=== PATIENT | male | born 1955 | race Caucasian/White ===

== ENCOUNTER 2017-01-26 18:08 | Inpatient (IN) | payer OTHER ==
[~2017-01-26] VITALS: Ht 157.5 cm; Wt 54.4 kg
[~2017-01-26 18:08] MED LIST: AMIO200T PO; AMOX-842 PO; ASPI81CT89 PO; ATOR20TA PO; CAR30 PO; HYDR-3229 PO; METO25TA PO; SEVE800T PO; SITA25TA3 PO; WARF2.5T77 PO
[2017-01-26 18:29] VITALS: BP 134/63
--- NOTE | 2017-01-26 19:00 | NUR ---
Pt taken to bed 7
[2017-01-26 19:09] LABS: BASOPHILS # (AUTO) 0.1 K/uL (0.00-0.22); BASOPHILS % (AUTO) 0.6 % (0.0-2.0); EOSINOPHILS # (AUTO) 0.1 K/uL (0-0.4); EOSINOPHILS % (AUTO) 0.7 % (0.0-4.0); HEMATOCRIT 32.6 % (36-52); HEMOGLOBIN 10.4 g/dL (12.0-18.0); LYMPHOCYTES # (AUTO) 0.8 K/uL (2.0-11.5); LYMPHOCYTES % (AUTO) 8.5 % (20.5-51.1); MEAN CORPUSCULAR HEMOGLOBIN 30 pg (27-31); MEAN CORPUSCULAR HGB CONC 32 g/dL (33-37); MEAN CORPUSCULAR VOLUME 94 fL (80-94); MONOCYTES # (AUTO) 0.5 K/uL (0.8-1.0); MONOCYTES % (AUTO) 5.9 % (1.7-9.3); NEUTROPHILS # (AUTO) 7.5 K/uL (1.8-7.7); NEUTROPHILS % (AUTO) 84.3 % (42.2-75.2); PLATELET COUNT (AUTO) 122 K/uL (140-450); RED BLOOD CELL COUNT(AUTO) 3.47 MIL/uL (4.20-6.10); RED CELL DISTRIBUTION WIDTH 15.6 % (11.6-13.7)
[2017-01-26] MEDS ORDERED: KETOROLAC 30 MG/ML VIAL IM ONE (19:15)
[2017-01-26] MEDS ORDERED: NACL 0.9% 1,000 ML IV ONE (19:15)
[2017-01-26] MEDS ORDERED: HYDROcodone/APAP 5/325 MG 1 TAB TAB PO ONE (19:15)
--- NOTE | 2017-01-26 19:18 | NUR ---
62 y/o m w/c/o l lower abd and l chest pain x 2 days. o2 sat 90-91%, pt placed in o2 2lt. o2 sat after o23 placement 98%-100%. er notified.
[2017-01-26] MEDS ORDERED: KETOROLAC 30 MG/ML VIAL IVP ONE (19:20)
[2017-01-26 19:28] LABS: ALBUMIN 3.3 g/dL (3.4-5.0); ANION GAP 14.9 (8-16); CALCIUM 8.7 mg/dL (8.5-10.1); CARBON DIOXIDE 38.1 mmol/L (21-32); TOTAL BILIRUBIN 0.6 mg/dL (0.0-1.0); TOTAL PROTEIN, SERUM 7.9 g/dL (6.4-8.2)
[2017-01-26 19:34] LABS: INR 1.3 (0.8-1.2)
[2017-01-26 19:39] LABS: LACTIC ACID 1.3 mmol/L (0.4-2.0)
[2017-01-26 19:44] LABS: CREATININE 8.8 mg/dL (0.6-1.3)
[2017-01-26] MEDS ORDERED: ASPIRIN 325 MG TAB PO ONE (19:50)
--- NOTE | 2017-01-26 20:52 | NUR ---
Patient will be admitted to care of Dr Salcido. Admited to telemetry. Will go to room 107b. Belongings list completed. Report to LALITA Lucia.
--- NOTE | 2017-01-26 21:05 | NUR ---
PT TRASFERRED TO TELEMETRY FLOOR VIA [place]. ACCOMPANIED BY RN AND EMT, DENIED ANY PAIN AT THE TIME OF TRASFER.
[2017-01-26] MEDS ORDERED: NACL 0.9% 1,000 ML IV SCH (21:08)
[2017-01-26 21:10] VITALS: BP 122/65
[2017-01-26] MEDS ORDERED: ACETAMINOPHEN 325 MG TAB PO PRN (21:10)
[2017-01-26] MEDS ORDERED: HYDROcodone/APAP 5/325 MG 1 TAB TAB PO PRN (21:10)
[2017-01-26] MEDS ORDERED: MORPHINE SULFATE 2 MG/ML SYR IVP PRN (21:10)
[2017-01-26] MEDS ORDERED: ONDANSETRON 4 MG/2 ML VIAL IVP PRN (21:10)
--- NOTE | 2017-01-26 21:10 | NUR ---
Admitted from ER, with chief complaint of WEAKNESS, LOWER ABDOMINAL PAIN, CHEST PAIN. PT'S FAMILY AT BEDSIDE. 62 Y/O MALE, COOPERATIVE, PT AOX4, ABLE TO VERBALIZE NEEDS. PT DENIES CHEST PAIN OR ABDOMINAL PAIN. NO SOB OR S/S OF ACUTE DISTRESS. PT ON O2 2L NC. BUSINESS PROFESSOR IN PLACE. SCAR FROM PAST BYPASS SURGERY NOTED. LEFT AV SHUNT NOTED, WILL OBSERVE LEFT LIMB RESTRICTION PRECAUTIONS. IV ACCESS ASYMPTOMATIC, PATENT AND INTACT. IVF INFUSING WELL. DISCUSSED AND REVIEWED PLAN OF CARE WITH PT. PT VERBALIZES UNDERSTANDING Oriented to call light, bed, phone,television, bathroom, smoking policy, visiting hours, procedures, ID bracelet on. Belongings list checked. SAFETY MEASURES ENSURED. CALL LIGHT WITHIN REACH. WILL CONTINUE TO MONITOR.
[2017-01-26] MEDS ORDERED: hePARIN / DEXT 5% PREMIX 250 ML IV SCH ×2 (21:15→23:30)
[2017-01-26] MEDS ORDERED: HEPARIN PER PHARMACY MC PRN (21:15)
[2017-01-26] MEDS: METOPROLOL 25 MG TAB PO SCH (21:20)
[2017-01-26] MEDS: ATORVASTATIN 20 MG TAB PO SCH (21:20)
[2017-01-26] MEDS: LISINOPRIL 5 MG TAB PO SCH (21:20)
--- NOTE | 2017-01-26 21:50 | NUR ---
PAGED DR TAIPA, MADE AWARE THAT THERE IS AN ORDER FOR HEPARIN DRIP BUT NO ORDER FOR PTT LAB DRAW. STATED THAT PTT LAB DRAW SHOULD ALREADY COME WITH THE HEPARIN DRIP ORDER PROTOCOL.
--- NOTE | 2017-01-26 21:55 | NUR ---
CHARGE NURSE MADE AWARE OF HEPARIN DRIP ORDER WITH NO ORDER FOR PTT LAB DRAW. DR TAPIA PAGED AGAIN TO GET ORDER FOR PTT LAB DRAW.
--- NOTE | 2017-01-26 22:35 | NUR ---
NO CALL BACK FROM DR TAPIA. CHARGE NURSE AWARE. PTT LAB DRAW ORDERED AT THIS TIME. CIAIO LUMITE INJECTOR LAURA MADE AWARE.
--- NOTE | 2017-01-26 22:46 | NUR ---
DUE MEDICATIONS LISINOPRIL, METOPROLOL AND LIPITOR HELD DUE TO MEDICATIONS NOT AVAILABLE FROM THE [facility] PER NURSE MIDWIFE. BP 122/65, HR 67, CONDITION STABLE. ALL NEEDS MET. SAFETY MEASURES ENSURED.
[2017-01-27] VITALS: BP 139/65
--- NOTE | 2017-01-27 00:37 | NUR ---
HEPARIN DRIP STARTED WITH EDUCATION AND 2 RN VERIFICATION PER PROTOCOL AND ORDERED, PT VERBALIZES UNDERSTANDING. PT TOLERATED WELL. HEPARIN DRIP INFUSING WELL. CONDITION STABLE. ALL NEEDS MET. SAFETY MEASURES ENSURED. CALL LIGHT WITHIN REACH. WILL CONTINUE TO MONITOR.
--- NOTE | 2017-01-27 01:00 | NUR ---
DR TAPIA MADE AWARE OF HEPARIN DRIP INFUSING WELL, STATED THAT IT IS OKAY FOR NURSES TO ORDER SUBSEQUENT PTT LAB DRAWS PER PROTOCOL. MADE AWARE OF PT DUE FOR DIALYSIS TOMORROW, PT IS ON DIALYSIS FOR SUN, AND SUNDAY. STATED "THIS PT IS A NEW ADMIT, THE ORDERS AND CONSULT WILL BE MADE IN THE MORNING."
[2017-01-27 04:00] VITALS: BP 116/56
--- NOTE | 2017-01-27 04:00 | NUR ---
CONDITION STABLE. ALL NEEDS MET. HEPARIN DRIP INFUSING WELL. SAFETY MEASURES ENSURED. CALL LIGHT WITHIN REACH. WILL CONTINUE TO MONITOR.
[2017-01-27] MEDS ORDERED: PNEUMOCOCCAL VACCINE 23 MCG/0.5 ML VIAL IMVAC SCH (04:20)
[2017-01-27] MEDS: DILTIAZEM 30 MG TAB PO SCH ×3 (04:50→21:13)
--- NOTE | 2017-01-27 05:14 | NUR ---
NEW IV ACCESS INSERTED ON LEFT WRIST, ASYMPTOMATIC, PATENT AND INTACT. PT TOLERATED WELL. IVF INFUSING WELL. HEPARIN DRIP ON IV LEFT FOREARM INFUSING WELL. ALL NEEDS MET. SAFETY MEASURES ENSURED. CALL LIGHT WITHIN REACH. WILL CONTINUE TO MONITOR.
--- NOTE | 2017-01-27 06:43 | NUR ---
PATIENT HAS BEEN SCREENED AND CATEGORIZED HIGH NUTRITION RISK. PATIENT WILL BE SEEN WITHIN 1-2 DAYS OF ADMISSION. 01/26/17-01/27/17 DRU BUTLER MS, RDN
--- NOTE | 2017-01-27 07:33 | NUR ---
ENDORSED PLAN OF CARE TO DAYSHIFT NURSE. CONDITION STABLE.
--- NOTE | 2017-01-27 07:34 | NUR ---
PT ALERT AND ORIENTED X4. BREATHING EVENLY AND UNLABORED. NO SIGNS OF ACUTE DISTRESS. SKIN IS WARM AND DRY. NO SIGNS OF ANY BOWEL/BLADDER DISCOMFORT. DENIES OF ANY PAIN OR DISCOMFORT. ALL NEEDS ATTENDED, SAFETY PRECAUTIONS MAINTAINED. CALL LIGHT WITHIN REACH.
--- NOTE | 2017-01-27 07:40 | NUR ---
OBTAINED PTT RESULTS. OBSERVED HEPARIN PROTOCOL ORDERED. CONTINUE TO MONITOR.
[2017-01-27 08:00] VITALS: BP 150/78
[2017-01-27] MEDS: METOPROLOL 25 MG TAB PO SCH ×2 (08:29→21:12)
[2017-01-27] MEDS: LISINOPRIL 5 MG TAB PO SCH (08:29)
[2017-01-27] MEDS: hydrALAZINE 10 MG TAB PO SCH ×2 (08:30→21:12)
--- NOTE | 2017-01-27 09:19 | NUR ---
01/27/17 RD INITIAL ASSESSMENT COMPLETED PLEASE REFER TO NUTRITION ASSESSMENT UNDER CARE ACTIVITY FOR ESTIMATED NUTRITIONAL NEEDS. RD RECOMMENDATIONS: 1. CONTINUE NPO APPROPRIATE. 2. CONSIDER INITIATING NUTRITION WHEN APPROPRIATE; CONSULT RDN PRN. 3. RD WILL F/U 2-3 DAYS; HIGH RISK. DRU BUTLER MS, RDN
[2017-01-27] MEDS: SEVELAMER CARBONATE 800 MG TAB PO SCH ×3 (10:19→17:00)
[2017-01-27] MEDS: ASPIRIN 81 MG TAB.CHEW PO SCH (10:19)
[2017-01-27] MEDS: AMIODARONE 200 MG TAB PO SCH (10:19)
--- NOTE | 2017-01-27 11:38 | NUR ---
RECEIVED NEW ORDER FROM Darnell MARTIN/[facility] HEPARIN NOTED AND CARRIED OUT.
[2017-01-27 12:00] VITALS: BP 140/68
--- NOTE | 2017-01-27 13:25 | NUR ---
WAS SEEN BY DR. HENDERSON, NEW ORDERS RECEIVED. HD TODAY. [facility] DIALYSIS AWARE.
[2017-01-27 14:25] LABS: INR 1.3 (0.8-1.2); PARTIAL THROMBOPLASTIN TIME 34.5 secs (22-35.6); PROTHROMBIN TIME 12.7 secs (10.8-13.4)
[2017-01-27 16:00] VITALS: BP 108/57
--- NOTE | 2017-01-27 17:23 | NUR ---
PT STARTED ON HD BY SHANNA CELIS FROM [facility]. PT TOLERATING WELL. CONTINUE TO MONITOR.
[2017-01-27] MEDS ORDERED: DEXTROSE 50% 50 ML SYR IVP PRN (17:40)
--- NOTE | 2017-01-27 18:41 | NUR ---
PT ALERT AND RESPONSIVE, NO SIGNS OF ACUTE DISTRESS. STILL UNDERGOING HD AND TOLERATING WELL. WILL ENDORSE TO ONCOMING HYDROGENATION OPERATOR NURSE FOR CONTINUITY OF CARE.
--- NOTE | 2017-01-27 19:30 | NUR ---
RECEIVED FROM AM RN IN BED AWAKE AND ALERT. HEMODIALYSIS ON GOING. NO COMPLAINTS OF ANY PAIN AT THIS TIME. CALL LIGHT WITH IN REACH. CARE PLANS FOR THE NIGHT DISCUSSED WITH HIM.
[2017-01-27 21:00] VITALS: BP 145/77
[2017-01-27] MEDS ORDERED: NACL 0.9% 1,000 ML IV SCH (21:08)
[2017-01-27] MEDS: ATORVASTATIN 20 MG TAB PO SCH (21:13)
[2017-01-27] MEDS: BLOOD GLUCOSE MONITORING 1 DEV DEV FS SCH (21:19)
[2017-01-27] MEDS: INSULIN LISPRO SLIDING SCALE 100 UNITS/ML VIAL SUBQ PRN (21:20)
--- NOTE | 2017-01-27 21:29 | NUR ---
HEMODIALYSIS DONE WITH OUTPUT OF 2100 ML. AWAKE AND ALERT. MEDICATED WITH ZOFRAN RT COMPLAINED OF NAUSEA. CALL LIGHT WITH IN REACH.
[2017-01-28 00:49] VITALS: BP 100/54
--- NOTE | 2017-01-28 00:55 | NUR ---
SLEEPING AT THIS TIME. WAKES UP EASILY WHEN TOUCHED. DENIES ANY PAIN. TELEMETRY MONITORING. HD SITE TO LEFT UPPER ARM INTACT DRESSING AND NO BLEEDING. CALL LIGHT WITH IN REACH.
[2017-01-28 04:36] VITALS: BP 105/58
--- NOTE | 2017-01-28 04:38 | NUR ---
PT. AWAKE AT THIS TIME. VITAL SIGNS TAKEN. NO COMPLAINTS DONE. ABLE TO VERBALIZE SIMPLE NEEDS. CALL LIGHT WITH IN REACH. ENCOURAGED TO GO BACK TO SLEEP RT IT IS STILL EARLY. "OK" DENIES ANY PAIN AT THIS TIME.
[2017-01-28] MEDS: BLOOD GLUCOSE MONITORING 1 DEV DEV FS SCH ×2 (05:53→11:51)
[2017-01-28] MEDS: DILTIAZEM 30 MG TAB PO SCH ×2 (05:55→12:00)
[2017-01-28] MEDS: INSULIN LISPRO SLIDING SCALE 100 UNITS/ML VIAL SUBQ PRN ×2 (05:56→11:58)
[2017-01-28 06:18] LABS: BASOPHILS % (AUTO) 0.1 % (0.0-2.0); EOSINOPHILS # (AUTO) 0.2 K/uL (0-0.4); HEMATOCRIT 26.5 % (36-52); HEMOGLOBIN 8.7 g/dL (12.0-18.0); LYMPHOCYTES # (AUTO) 0.6 K/uL (2.0-11.5); LYMPHOCYTES % (AUTO) 5.2 % (20.5-51.1); MEAN CORPUSCULAR HEMOGLOBIN 31 pg (27-31); MEAN CORPUSCULAR HGB CONC 33 g/dL (33-37); MEAN CORPUSCULAR VOLUME 94 fL (80-94); MONOCYTES % (AUTO) 8.1 % (1.7-9.3); NEUTROPHILS # (AUTO) 10.6 K/uL (1.8-7.7); NEUTROPHILS % (AUTO) 84.6 % (42.2-75.2); PLATELET COUNT (AUTO) 119 K/uL (140-450); RED BLOOD CELL COUNT(AUTO) 2.83 MIL/uL (4.20-6.10); RED CELL DISTRIBUTION WIDTH 15.9 % (11.6-13.7)
--- NOTE | 2017-01-28 06:23 | NUR ---
SLEEPING. NO RESTLESSNESS NOTED. TELEMETRY MONITORING.
[2017-01-28 06:30] LABS: ANION GAP 14.6 (8-16); CALCIUM 9.8 mg/dL (8.5-10.1); CARBON DIOXIDE 28.9 mmol/L (21-32); POTASSIUM 4.5 mmol/L (3.5-5.1)
[2017-01-28 06:48] LABS: PHOSPHORUS 4.7 mg/dL (2.5-4.9); THYROID STIMULATING HORMONE 0.8 uIU/mL (0.34-3.76)
[2017-01-28 07:19] LABS: WHITE BLOOD COUNT (AUTO) 12.4 K/uL (4.8-10.8)
--- NOTE | 2017-01-28 07:28 | NUR ---
ENDORSED TO THE NEXT RN FOR CONTINUITY OF CARE. AWAKE AND ALERT AT THIS TIME. ABLE TO VERBALIZE SIMPLE NEEDS. NO SOB. NO CHEST PAIN COMPLAINT THIS SHIFT.
[2017-01-28 08:00] VITALS: BP 151/77
[2017-01-28] MEDS: METOPROLOL 25 MG TAB PO SCH (08:09)
[2017-01-28] MEDS: LISINOPRIL 5 MG TAB PO SCH (08:09)
[2017-01-28] MEDS: SEVELAMER CARBONATE 800 MG TAB PO SCH ×2 (08:09→11:59)
[2017-01-28] MEDS: ASPIRIN 81 MG TAB.CHEW PO SCH (08:09)
[2017-01-28] MEDS: hydrALAZINE 10 MG TAB PO SCH (08:09)
[2017-01-28] MEDS: AMIODARONE 200 MG TAB PO SCH (08:09)
[2017-01-28] MEDS ORDERED: PANTOPRAZOLE 40 MG INJ VIAL IVP SCH (09:00)
[2017-01-28] MEDS ORDERED: CLOPIDOGREL 75 MG TAB PO SCH (09:00)
[2017-01-28] MEDS ORDERED: VITAMIN B COMPLEX W/C 1 TAB PO SCH (09:00)
[2017-01-28 12:00] VITALS: BP 105/56
--- NOTE | 2017-01-28 12:09 | NUR ---
WAS SEEN BY DR. HENDERSON, RECEIVED NEW MED ORDER, NOTED AND CARRIED OUT.
--- NOTE | 2017-01-28 15:15 | NUR ---
PT ALERT AND RESPONSIVE, NO SIGNS OF ACUTE DISTRESS. SKIN WARM AND DRY. MAY D/C HOME ORDERED. EDUCATED TO FOLLOW UP WITH PCP IN 1 WEEK, CONTINUE CURRENT HOME MEDS. PT VERBALIZED UNDERSTANDING. IV LINE, TELE LEADS AND WRIST BANDS REMOVED. PICKED UP BY DAUGHTER, PERSONAL BELONGINGS WITH PT UPON DISCHARGE. ESCORTED TO FRONT LOBBY AND WENT HOME VIA PRIVATE AUTO.
[2017-01-29] MEDS ORDERED: EPOETIN ALFA 4,000 UNITS/ML VIAL SUBQ SCH (09:00)
== END 2017-01-28 15:20 | disposition home or self-care (01) | DRG 682 ==
LOC: MED 18:08 → MTU 20:59
PROVIDERS: ADMIT Family Medicine; ATTEND Family Medicine
PROC: 5A1D00Z (ICD-10-PCS; principal; 2017-01-27)
DX: N17.0 Acute kidney failure with tubular necrosis (principal); E43 Unspecified severe protein-calorie malnutrition; I13.2 Hypertensive heart and chronic kidney disease with heart failure and with stage 5 chronic kidney disease, or end stage renal disease; I42.9 Cardiomyopathy, unspecified; D68.69 Other thrombophilia; K29.00 Acute gastritis without bleeding; N18.6 End stage renal disease; D63.1 Anemia in chronic kidney disease; I25.10 Atherosclerotic heart disease of native coronary artery without angina pectoris; E78.5 Hyperlipidemia, unspecified; E11.65 Type 2 diabetes mellitus with hyperglycemia; E11.21 Type 2 diabetes mellitus with diabetic nephropathy; E11.22 Type 2 diabetes mellitus with diabetic chronic kidney disease; E11.319 Type 2 diabetes mellitus with unspecified diabetic retinopathy without macular edema; E78.00 Pure hypercholesterolemia, unspecified; I48.0 Paroxysmal atrial fibrillation; I50.9 Heart failure, unspecified; R07.89 Other chest pain; E11.51 Type 2 diabetes mellitus with diabetic peripheral angiopathy without gangrene; Z99.2 Dependence on renal dialysis; Z95.1 Presence of aortocoronary bypass graft; Z89.421 Acquired absence of other right toe(s); Z98.41 Cataract extraction status, right eye; Z98.42 Cataract extraction status, left eye; Z68.21 Body mass index [BMI] 21.0-21.9, adult; Z79.82 Long term (current) use of aspirin; Z79.01 Long term (current) use of anticoagulants; Z79.899 Other long term (current) drug therapy; Z87.81 Personal history of (healed) traumatic fracture; Z87.891 Personal history of nicotine dependence; Z86.73 Personal history of transient ischemic attack (TIA), and cerebral infarction without residual deficits; Z83.3 Family history of diabetes mellitus
CPT/HCPCS: 36415; 71010; 80048; 80053; 82040; 82948; 83605; 83690; 84100; 84443; 84484; 84550; 85025; 85610; 85730; 87040; 87081; 90732; 93005; 96361; 96374; 99285; C9113; J1644; J1885; J2270; J2405; J7030

== ENCOUNTER 2017-02-01 13:16 | Emergency (ER) | payer OTHER ==
[~2017-02-01] VITALS: Ht 157.5 cm; Wt 54.4 kg
[~2017-02-01 13:16] MED LIST changes: -AMIO200T PO; -AMOX-842 PO; +APRESOLINE10 MG PO; -ASPI81CT89 PO; +ASPIRIN81 M1 PO; -ATOR20TA PO; +AUGMENTIN 875 M1 TAB PO; -CAR30 PO; +CARDIZEM30 MG PO; +CORDARONE200 MG PO; +COUMADIN2.5 MG PO; +GLUCOTROL5 MG PO; -HYDR-3229 PO; +HYDRALAZINE50 MG PO; +JANUVIA25 MG PO; +LIPITOR20 MG PO; +LOPRESSOR25 MG PO; +LOTENSIN40 M1 PO; -METO25TA PO; +METOPROLOL TART25 MG PO; +METOPROLOL100 MG PO; +NEPHRO-VITE1 TA1 PO; +PROTONIX40 MG PO; +RENAGEL800 MG PO; +RENVELA800 MG PO; +SENSIPAR30 MG PO; -SEVE800T PO; -SITA25TA3 PO; -WARF2.5T77 PO; +[UNRECOGNIZED DRUG - REMARK]
[2017-02-01 13:33] VITALS: BP 117/68
--- NOTE | 2017-02-01 13:41 | NUR ---
PT WHEELCHAIRED TO BED 4.
--- NOTE | 2017-02-01 13:45 | NUR ---
PATIENT PRESENTS TO ED WITH RIGHT TESTICULAR SWELLING REDNESS PAIN X 4 DAYS--DENIES RECENT INJURY . PT STATES . DENIES N/V/D; SKIN IS PINK/WARM/DRY; AAOX4 WITH EVEN AND STEADY GAIT; LUNGS CLEAR BL; HR EVEN AND REGULAR; PT DENIES ANY FEVER, CP, SOB, OR COUGH AT THIS TIME; PATIENT STATES PAIN OF 6/10 AT THIS TIME; VSS; PATIENT POSITIONED FOR COMFORT; HOB ELEVATED; BEDRAILS UP X2; BED DOWN. ER MD MADE AWARE OF PT STATUS.
--- NOTE | 2017-02-01 14:00 | NUR ---
ULTRASOUND AT BEDSIDE
--- NOTE | 2017-02-01 15:00 | NUR ---
RESTING WITH OU CLOSED, NO S/S RESP DISTRESS---DENIES PAIN AT THIS TIME. CONTINUES TO WAIT FOR DISPO
[2017-02-01 16:03] VITALS: BP 122/71
--- NOTE | 2017-02-01 16:03 | NUR ---
Patient discharged with v/s stable. Written and verbal after care instructions given and explained. Patient alert, oriented and verbalized understanding of instructions. Carried with steady gait. All questions addressed prior to discharge. ID band removed. Patient advised to follow up with PMD. Rx of MOTRIN 600MG TAB given. Patient educated on indication of medication including possible reaction and side effects. Opportunity to ask questions provided and answered.
== END 2017-02-01 16:03 | disposition home or self-care (01) ==
LOC: MED 13:16
DX: N50.811 Right testicular pain (principal); N50.89 Other specified disorders of the male genital organs; I13.11 Hypertensive heart and chronic kidney disease without heart failure, with stage 5 chronic kidney disease, or end stage renal disease; E11.22 Type 2 diabetes mellitus with diabetic chronic kidney disease; N18.6 End stage renal disease; Z99.2 Dependence on renal dialysis; Z79.84 Long term (current) use of oral hypoglycemic drugs; Z98.890 Other specified postprocedural states
CPT/HCPCS: 36415; 76870; 80053; 85025; 99285; Q0092